=== PATIENT | female | born 1940 | race Two or more races ===

== ENCOUNTER 2022-05-10 16:29 | Emergency (ER) | payer OTHER ==
[~2022-05-10] VITALS: Ht 162.6 cm; Wt 68.0 kg
== END 2022-05-10 20:16 | disposition home or self-care (01) ==
LOC: ER 16:29
DX: S09.8XXA Other specified injuries of head, initial encounter (principal); W18.39XA Other fall on same level, initial encounter; Y93.89 Activity, other specified; Y92.238 Other place in hospital as the place of occurrence of the external cause; R42 Dizziness and giddiness